=== PATIENT | female | born 1970 | race Caucasian/White ===

== ENCOUNTER → 2020-12-17 | Outpatient (CLI) | payer OTHER ==
--- NOTE | 2020-12-17 15:01 | RAD ---
XR CHEST 2V History: Reason: SHORTNESS OF BREATH, COUGH, MILD ASTHMA / Spl. Instructions: / History: Comparison: None. Findings: Low lung volumes with patchy bibasilar opacities. No pleural effusion. No pneumothorax. Impression: 1. Low lung volumes with patchy bibasilar opacities, may represent atelectasis or developing infiltr ates. Electronically signed by: Abilio Galvez DO (12/17/2020 2:58 PM) [id number]
== END ==
LOC: PMG 14:33
PROVIDERS: ATTEND Physician Assistant Medical
DX: J45.909 Unspecified asthma, uncomplicated (principal)
CPT/HCPCS: 71046

== ENCOUNTER → 2021-07-28 | Outpatient (CLI) | payer OTHER ==
--- NOTE | 2021-07-29 10:38 | RAD ---
Bilateral digital screening mammogram to include digital breast tomosynthesis (3-D mammography) 07/28 CLINICAL HISTORY: Screening study. Digital MLO and CC mammograms of both breasts were obtained. Additionally digital breast tomosynthesi s images (3-D mammography) of both breasts in the CC and MLO projections were obtained. Comparison is made to patient's outside mammograms from diagnostic imaging centers dated 07/12/2020, 1 and 07/14/2018. The breast parenchyma is heterogeneously dense which could obscure a lesion on mammography (breast de nsity C). No spiculated mass is seen. No malignant appearing calcification or area of architectural d istortion is noted. Digital breast tomosynthesis images demonstrate no spiculated mass. No malignant appearing calcificat ion is seen. Impression: BI-RADS Category 1: Negative. There is no mammographic evidence of malignancy. Routine y early screening mammography is recommended for follow-up. This examination was reviewed with the aid of computer-aided detection. A mammogram does not have 100% sensitivity and therefore a negative imaging study should not delay fu rther work up of a suspicious abnormality. Patient information is entered into the reminder system with a target due date for the next screening mammogram of 07/28/2022. "Our facility is accredited by the [employer] Mammography Program." Electronically signed by: Timur Crain MD (07/29/2021 10:35 AM) [id number]
== END ==
LOC: MAMMO 09:08
PROVIDERS: ATTEND Physician Assistant Medical
DX: Z12.31 Encounter for screening mammogram for malignant neoplasm of breast (principal)
CPT/HCPCS: 77067

== ENCOUNTER 2021-08-08 16:27 | Emergency (ER) | payer OTHER ==
[~2021-08-08] VITALS: Ht 160 cm; Wt 70.0 kg
--- NOTE | 2021-08-08 16:52 | PHYS DOC ---
Adult General HPI HPI Patient is a 51-year-old female presenting for abdominal pain. This is a chronic issue for patient. She has known history of IBS and battles flares often. Reports current episode started this morning. She has been taking [id number]'s and other prescribed medications such as MiraLAX, Linzess, and other stool softeners without significant relief. Nothing known makes better or worse. Patient reports symptoms wax and wane but reports she has had mostly upper and central/epigastric pain since mid morning without any known inciting event, trauma, ingestion or trauma. No fever, recent sick contacts or travel reported. She has been passing gas but does admit she has been constipated with last normal bowel movement approximately 3 weeks prior. She has prior c-sections and ovarian follicle removals (non-cancerous), no other significant intra-abdominal abnormalities Review of Systems Review of Systems Fourteen body systems of review of systems have been reviewed. See HPI for pertinent positives and negative responses, other kraus all other systems are negative, non-pertinent or non-contributory Physical Exam Physical Exam Constitutional: Well developed, well nourished, no acute distress, non-toxic appearance. HENT: Normocephalic, atraumatic, bilateral external ears normal, oropharynx moist, no oral exudates, nose normal. Eyes: PERRLA, EOMI, conjunctiva normal, no discharge. Neck: Normal range of motion, no tenderness, supple, no stridor. Cardiovascular: Heart rate regular, sinus rhythm, no murmurs rubs or gallops Lungs & Thorax: Bilateral breath sounds clear to auscultation Abdomen: Bowel sounds normal, soft, epigastric tenderness to palpation without guarding or rebound, no masses, no pulsatile masses. Nonsurgical abdomen, no peritoneal signs Skin: Warm, dry, no erythema, no rash. Back: No tenderness, no CVA tenderness. Extremities: No tenderness, no cyanosis, no clubbing, ROM intact, no edema. Neurologic: Alert and oriented X 3, grossly normal motor & sensory function, no focal deficits noted. Psychologic: Anxious affect and mood Current Patient Data Vital Signs Vital Signs Date Time Temp Pulse Resp B/P (MAP) Pulse Ox O2 Delivery O2 Flow Rate FiO2 08/08/21 18:03 97.7 67 140/78 (98) 96 Vital Signs Date Time Temp Pulse Resp B/P (MAP) Pulse Ox O2 Delivery O2 Flow Rate FiO2 08/08/21 18:03 97.7 67 140/78 (98) 96 EKG EKG [] Radiology/Procedures Radiology/Procedures AP view of the abdomen Clinical indications: Abdominal pain. History of irritable bowel syndrome. Constipation. FINDINGS: There is moderate fecal retention within the ascending colon and transverse colon and descending colon. No significant fecal retention is seen within the rectosigmoid region. Colon is mildly dilated measuring up to 8 cm within the ascending colon. No small bowel obstruction is evident. Calcified phleboliths are seen within the anatomic pelvis. The osseous structures are intact. IMPRESSION: Moderate fecal retention. Electronically signed by: Jerome Burgos MD (08/08/2021 5:17 PM) [id number] Heart Score C/O Chest Pain: No Risk Factors: Risk Factors: DM, Current or recent (<one month) smoker, HTN, HLP, family history of CAD, obesity. Risk Scores: Risk Factors: DM, Current or recent (<one month) smoker, HTN, HLP, family history of CAD, obesity. Course & Med Decision Making Course & Med Decision Making ABCs unremarkable. I disclosed entirety of ER findings and discussed most likely diagnosis of upper abdominal pain of unknown etiology, likely constipation/IBS in etiology. Other diagnoses were discussed with patient such as intra-abdominal abnormalities and other potentially life-threatening diagnoses but all deemed less likely causes of patient's presentation. IM Bentyl and continued supportive care practices advised. Plan of care discussed at length with need for close outpatient follow-up to review today's ER visit stressed. Strict return precautions were also discussed at length with good understanding verbalized by patient. Patient voiced understanding and agreement with the plan. Patient knows to come back for repeat evaluation if concerning signs or symptoms present prior to outpatient follow-up. Hemodynamically stable, ambulatory and well-appearing at time of disposition. Dragon Disclaimer Dragon Disclaimer This electronic medical record was generated, in whole or in part, using a voice recognition dictation system. Departure Departure: Impression: Primary Impression: Abdominal pain Additional Impressions: Constipation History of IBS Disposition: HOME / SELF CARE / HOMELESS Condition: STABLE Referrals: CAMPBELL ACEVEDO (PCP) Problem Qualifiers JOSE ZAMORA DO Aug 08, 2021 16:52
--- NOTE | 2021-08-08 17:20 | RAD ---
AP view of the abdomen Clinical indications: Abdominal pain. History of irritable bowel syndrome. Constipation. FINDINGS: There is moderate fecal retention within the ascending colon and transverse colon and desce nding colon. No significant fecal retention is seen within the rectosigmoid region. Colon is mildly d ilated measuring up to 8 cm within the ascending colon. No small bowel obstruction is evident. Calcif ied phleboliths are seen within the anatomic pelvis. The osseous structures are intact. IMPRESSION: Moderate fecal retention. Electronically signed by: Jerome Burgos MD (08/08/2021 5:17 PM) [id number]
[2021-08-08] MEDS ORDERED: DICYCLOMINE 20 MG/2 ML VIAL. IM ONE (18:00)
[2021-08-08 18:03] VITALS: BP 140/78
== END 2021-08-08 18:16 | disposition home or self-care (01) ==
LOC: ER 16:27
DX: K59.00 Constipation, unspecified (principal)
CPT/HCPCS: 74018; 96372; 99283; J0500